=== PATIENT | female | born 1955 | race Caucasian/White ===

== ENCOUNTER 2017-03-02 10:10 | Emergency (ER) | payer MEDICAID ==
[~2017-03-02] VITALS: Ht 160 cm; Wt 67.0 kg
[2017-03-02 10:12] VITALS: BP 154/88
[2017-03-02] MEDS ORDERED: LIDOCAINE 1%, 10ML ONE (10:56)
== END 2017-03-02 11:58 | disposition home or self-care (01) ==
LOC: ED 11:26
DX: L72.3 Sebaceous cyst (principal); I10 Essential (primary) hypertension
CPT/HCPCS: 87070; 87077; 87186; 87205; 99284

== ENCOUNTER 2018-09-16 12:50 | Outpatient (CLI) | payer MEDICAID | END 2018-09-16 23:59 | disposition home or self-care (01) | LOC: CFH 12:50 | PROVIDERS: ATTEND Internal Medicine Cardiovascular Disease | DX: R07.89 Other chest pain (principal); I10 Essential (primary) hypertension; F17.210 Nicotine dependence, cigarettes, uncomplicated | CPT/HCPCS: 93306 ==